=== PATIENT | female | born 1965 | race Two or more races ===

== ENCOUNTER 2019-08-02 09:10 | Emergency (ER) | payer OTHER ==
[~2019-08-02] VITALS: Ht 152.4 cm; Wt 84.4 kg
--- NOTE | 2019-08-02 09:19 | Emergency Room Report ---
History of Present Illness General Chief Complaint: Lower Extremity Injury Source: Patient Present Illness HPI Disclaimer: Please note that this report is being documented using DRAGON technology. This can lead to erroneous entry secondary to incorrect interpretation by the dictating instrument. HPI: 54-year-old female presents for right knee pain. The patient was walking this morning and broke into a light run after which she felt a pop in the anterior portion of the knee. Difficulty with bending. There was no fall she braced herself around a tree. She states he has chronic problems in the left knee, wears a brace and receives cortisone shots from orthopedist. Denies bending or twisting injury. States she has difficulty bearing weight and flexing the knee at this time. Pain does not radiate. Allergies: Coded Allergies: No Known Allergies (Unverified , 08/02/19) COVID-19 Screening Contact w/high risk pt: No Recent Travel to affected area: No Experienced COVID-19 symptoms?: No COVID-19 Testing performed [employer]PERT: No Patient History Now: No Nursing Documentation-[facility] Hx Hypertension: Yes Review of Systems All Other Systems: negative except mentioned in HPI Physical Exam Vital Signs Date Time Temp Pulse Resp B/P (MAP) Pulse Ox O2 Delivery O2 Flow Rate FiO2 08/02/19 09:12 99.0 93 22 159/95 (116) 98 Room Air Medical Decision Making Diagnostic Impression: Primary Impression: Knee pain ER Course This is a 54-year-old female presenting for evaluation of right knee pain and popping sensation while walking today. There was no fall or injury reported. Concern for dislocation or ligamentous injury. X-ray was obtained but does not show any osseous abnormalities. The patient was given crutches and placed in a knee immobilizer possible ligamentous injury. She has an orthopedist that she will follow-up in. Will discharge with crutches, anti-inflammatories and pain medication. Discussed reasons to return to the emergency department. She understands and agrees with this treatment plan. Other X-Ray Diagnostic Results Other X-Ray Diagnostic Results : X-Ray ordered: Right knee # of Views/Limited Vs Complete: 3 View Indication: Pain EP Interpretation: Yes Interpretation: no dislocation, no soft tissue swelling, no fractures Impression: No acute disease Electronically Signed by: Electronically signed by Dr. Chris Spears Last Vital Signs Date Time Temp Pulse Resp B/P (MAP) Pulse Ox O2 Delivery O2 Flow Rate FiO2 08/02/19 09:12 99.0 93 22 159/95 (116) 98 Room Air Disposition: HOME, SELF-CARE Condition: Stable Scripts Hydrocodone Bit/Acetaminophen 5-325* (NORCO 5-325 TABLET*) 1 Each Tablet 1 TAB ORAL Q6H PRN for FOR PAIN, #10 TAB 0 Refills Prov: Chris Spears MD 08/02/19 Naproxen* (NAPROXEN*) 500 Mg Tablet 500 MG ORAL TWICE A WEEK, #30 TAB 0 Refills Prov: Chris Spears MD 08/02/19 Chris Spears MD Aug 02, 2019 09:19
[2019-08-02] MEDS ORDERED: HYDROcodone/Acetamin 5/325 tab ORAL ONE (09:30)
--- NOTE | 2019-08-02 10:00 | Diagnostic Imaging Report ---
EXAM: X-RAY XRAY Knee 3v R CLINICAL HISTORY: Trauma with knee pain. COMPARISON: None FINDINGS: Total of 3 views of the right knee were obtained. Alignment is anatomic. There is no fracture, bony lesions or erosions. Joint spaces are unremarkable. Surrounding soft tissue is normal. IMPRESSION: NO FRACTURE.
[2019-08-02] MEDS ORDERED: NAPROXEN500 M2 ORAL (10:47)
[2019-08-02] MEDS ORDERED: NORCO 5-325 TA1 EAC1 ORAL (10:47)
[2019-08-02 11:15] VITALS: BP 147/84
== END 2019-08-02 11:15 | disposition home or self-care (01) ==
LOC: EMR 09:40
DX: M25.561 Pain in right knee (principal); I10 Essential (primary) hypertension
CPT/HCPCS: 29505; 73562; Z7502; 99283